=== PATIENT | female | born 1950 ===

== ENCOUNTER 2019-10-20 00:40 | Outpatient (CLI) | payer MEDICARE, BC | END 2019-10-20 23:59 | disposition home or self-care (01) | LOC: DIABETIC 00:40 | PROVIDERS: ATTEND Surgery | DX: Z71.3 Dietary counseling and surveillance (principal); E66.01 Morbid (severe) obesity due to excess calories; Z68.30 Body mass index [BMI] 30.0-30.9, adult | CPT/HCPCS: 97803 ==